=== PATIENT | female | born 1990 | race Caucasian/White ===

== ENCOUNTER 2020-06-21 12:55 | Emergency (ER) | payer MEDICAID ==
--- NOTE | 2020-06-21 13:04 | ED Physician Documentation ---
PD HPI HEENT - Stated complaint Stated Complaint: SOAR THROAT - History obtained from History obtained from: Patient - History of Present Illness Timing - onset: How many months ago (6 months of fairly frequent sore throat and then more consistent the past 2 months. Has seen PMD and then ENT in [facility]. Has had CLaritin and FLonase without improvment. Is getting CT neck in 10 days, and f/u ENT appt after that.) Timing - details: Gradual onset, Waxing and waning Location: Throat, Other (anterior neck) Associated symptoms: No: Fever, Congestion, Facial swelling, Cough Similar symptoms before: No diagnosis Recently seen: Clinic (PMD and then ENT, with labs to eval thyroid, strep/culture, mono, without diagnosis.) Review of Systems Constitutional: denies: Fever Nose: denies: Rhinorrhea / runny nose, Congestion Throat: reports: Sore throat Respiratory: denies: Cough Skin: denies: Rash, Lesions Musculoskeletal: reports: Neck pain (anterior) PD PAST MEDICAL HISTORY - Past Medical History Neuro: None Endocrine/Autoimmune: None GI: None, GERD (sometimes) Psych: Bipolar disorder - Present Medications Home Medications: Ambulatory Orders Medication Instructions Recorded Confirmed Famotidine 20 mg PO DAILY #30 tablet 06/21/20 Hydrocodone/Acetaminophen 1 each PO Q6H PRN #15 tablet 06/21/20 [Hydrocodone-Acetamin 5-325 mg] Levothyroxine [Synthroid] 50 mcg DAILY 06/21/20 06/21/20 [place] 0 mg DAILY 06/21/20 06/21/20 dexAMETHasone [Decadron] 4 mg PO DAILY #5 tablet 06/21/20 lamoTRIgine [LaMICtal] 100 mg DAILY 06/21/20 06/21/20 - Allergies Allergies/Adverse Reactions: Allergies Allergy/AdvReac Type Severity Reaction Status Date / Time No Known Drug Allergies Allergy Verified 06/21/20 13:01 PD ED PE NORMAL - Vitals Vital signs reviewed: Yes - General General: Alert and oriented X 3, No acute distress, Well developed/nourished - HEENT HEENT: Moist mucous membranes, Pharynx benign - Neck Neck: Supple, no meningeal sign, No adenopathy, Thyroid normal, Other (anterior neck is tender in muscles but no noted swelling/masses. ) - Cardiac Cardiac: RRR, No murmur - Respiratory Respiratory: Clear bilaterally - Abdomen Abdomen: Soft, Non tender - Derm Derm: Normal color, Warm and dry Results - Vitals Vitals: Vital Signs - 24 hr 06/21/20 13:01 Temperature 36.5 C Heart Rate 90 Respiratory 16 Rate Blood Pressure 132/95 H O2 Saturation 97 Oxygen O2 Source Room air - Labs Labs: Laboratory Tests 06/21/20 13:12 Group A Strep Rapid Negative PD MEDICAL DECISION MAKING - ED course Complexity details: considered differential (sore throat for months, and is in workup with ENT in [place]. Has CT ? soft tissue neck scheduled 07/02 and appt following week with the ENT. ), d/w patient ED course: She prefers to continue timeframe planned (I discussed getting CT here, but she was concerned about getting the right test and the ENT having easy access to images. These are reasonable. Her symptoms could be suggestive of reflux or sinus drainage, in addition to soft tissue factors on neck. Departure - Departure Disposition: Home, Self Care Clinical Impression: Sore throat Condition: Stable Record reviewed to determine appropriate education?: Yes Follow-Up: [facility] [Provider Group] Prescriptions: dexAMETHasone [Decadron] 4 mg PO DAILY #5 tablet Famotidine 20 mg PO DAILY #30 tablet Hydrocodone/Acetaminophen [Hydrocodone-Acetamin 5-325 mg] 1 each PO Q6H PRN #15 tablet PRN Reason: Pain Comments: Follow up for the CT scan and see the ENT specialist as planned. Continue with your Claritin daily and your usual medications. I would consider the possibilities of may be sinus drainage and inflammation causing the pain and so continuing the Claritin we can also add Decadron steroid for inflammation daily for 5 more days. Other consideration would be reflux causing pain in the throat and so I would suggest adding famotidine daily for the next month. Return if worsening symptoms generally. Follow-up with your ENT as planned. Obtain a local provider for primary care. Tylenol every 4-6 hours (4 times a day) for pain and add hydrocodone if needed for worse pain. Discharge Date/Time: 06/21/20 14:04
[2020-06-21 13:05] VITALS: BP 132/95
[2020-06-21 13:25] LABS: RAPID STREP SCREEN Negative (Negative)
[2020-06-21] MEDS ORDERED: FAMOTIDINE 20 MG TABLET PO STA (13:44)
[2020-06-21] MEDS ORDERED: CHERRY SYRUP 10 ML UDC PO ONE (13:44)
[2020-06-21] MEDS ORDERED: HYDROcod/ACETAM 5/325 MG TABLET PO STA (13:44)
[2020-06-21] MEDS ORDERED: DEXAMETHASONE 10 MG/ML VIAL PO STA (13:44)
== END 2020-06-21 14:04 | disposition home or self-care (01) ==
LOC: EDBD → ED 12:55
DX: J02.9 Acute pharyngitis, unspecified (principal); M54.2 Cervicalgia; K21.9 Gastro-esophageal reflux disease without esophagitis
CPT/HCPCS: 87070; 87430; 99283; 99284; A9270

== ENCOUNTER 2020-06-30 10:39 | Emergency (ER) | payer MEDICAID ==
--- NOTE | 2020-06-30 12:35 | ED Physician Documentation ---
History of Present Illness - Stated complaint Stated Complaint: CHEST PAIN, SOA - Chief complaint Chief Complaint: Cardiac - History obtained from History obtained from: Patient - Additonal information Additional information: PT comes to the ED, c/o a tight chest discomfort that has been going on episodically for months. Pt has been worked up, and told she has anxiety. She states that she had another episode today, and is concerned that it is on both sides of her chest. She wonders if it could mean that she has cancer. She denies cough, SOB, weight loss or fevers. Pt states the discomfort is worse with deep breaths. Pt denies smoking or diabetes. No family members with [place] at a young age. Review of Systems Ten Systems: 10 systems reviewed and negative Constitutional: reports: Reviewed and negative Eyes: reports: Reviewed and negative Ears: reports: Reviewed and negative Nose: reports: Reviewed and negative Throat: reports: Reviewed and negative Cardiac: reports: Chest pain / pressure Respiratory: reports: Reviewed and negative GI: reports: Reviewed and negative : reports: Reviewed and negative Skin: reports: Reviewed and negative Musculoskeletal: reports: Reviewed and negative Neurologic: reports: Reviewed and negative Psychiatric: reports: Reviewed and negative Endocrine: reports: Reviewed and negative Immunocompromised: reports: Reviewed and negative PD PAST MEDICAL HISTORY - Past Medical History Past Medical History: Yes Neuro: None Endocrine/Autoimmune: None GI: None, GERD Psych: Bipolar disorder - Past Surgical History Past Surgical History: Yes HEENT: Tonsil/Adenoidectomy - Present Medications Home Medications: Ambulatory Orders Medication Instructions Recorded Confirmed Famotidine 20 mg PO DAILY #30 tablet 06/21/20 06/30/20 Levothyroxine [Synthroid] 50 mcg DAILY 06/21/20 06/30/20 [place] 0 mg DAILY 06/21/20 06/30/20 lamoTRIgine [LaMICtal] 100 mg DAILY 06/21/20 06/30/20 Gabapentin [Neurontin] 300 mg PO HS 06/30/20 06/30/20 risperiDONE [Risperdal] 2 mg PO QPM 06/30/20 06/30/20 - Allergies Allergies/Adverse Reactions: Allergies Allergy/AdvReac Type Severity Reaction Status Date / Time No Known Drug Allergies Allergy Verified 06/30/20 10:49 - Social History Does the pt smoke?: No Smoking Status: Never smoker PD ED PE NORMAL - Vitals Vital signs reviewed: Yes - General General: Alert and oriented X 3, No acute distress - HEENT HEENT: Atraumatic, PERRL, EOMI, Moist mucous membranes - Neck Neck: Supple, no meningeal sign - Cardiac Cardiac: RRR, No murmur, Strong equal pulses - Respiratory Respiratory: No respiratory distress, Clear bilaterally - Abdomen Abdomen: Soft, Non tender, Non distended - Derm Derm: Warm and dry - Extremities Extremities: No deformity - Neuro Neuro: Alert and oriented X 3 - Psych Psych: Normal mood, Normal affect Results - Vitals Vitals: Oxygen O2 Source Room air - EKG (time done) 10:56 Rate: Rate (enter#) (76) Rhythm: NSR [place]: Normal Intervals: Normal [place] QRS: Normal Ischemia: Normal ST segments. No: T wave inversion Compare to prior EKG: Old EKG unavailable Computer interpretation: Agree with computer PD MEDICAL DECISION MAKING - ED course Complexity details: reviewed results, re-evaluated patient, considered differential, d/w patient ED course: Pt was very low-risk both by history and physical exam, for emergent causes of chest pain. Her EKG is normal today. I have reassured her that the sx she has and those she lacks do not point to cancer as a cause of what she has been experiencing. We have discussed symptomatic management and the need for primary care follow-up. We have discussed the usual indications for return. Departure - Departure Disposition: 01 Home, Self Care Clinical Impression: Chest wall pain Condition: Stable Instructions: ED Chest Pain NonCardiac Comments: Your EKG looks good. There is no evidence of a serious or emergent cause of your chest pain today. What you are describing sounds most likely to be coming from the structures of your chest wall, rather than the internal organs or vital structures. As we have discussed, heat, massage, movement in the form of light exercise, such as walking, and deep breathing exercises can help with some of this tension and discomfort. Exercise is also helpful for anxiety. You may take ibuprofen as needed to help with any discomfort. Please follow-up with your primary care physician. Discharge Date/Time: 06/30/20 12:42
[2020-06-30 12:43] VITALS: BP 130/80
== END 2020-06-30 12:42 | disposition home or self-care (01) ==
LOC: ED 10:39
DX: R07.89 Other chest pain (principal)
CPT/HCPCS: 93005; 99283; 99284